=== PATIENT | female | born 1965 | race Two or more races ===

== ENCOUNTER → 2023-03-05 | Outpatient (REF) | payer OTHER ==
[~2023-03-05] MED LIST: /FEXO60TA OR; CALCIUM PO; CINNAMON PO; DIOV320T OR; FIBER PO; GLUC1000 OR; HYDR25TA6 OR; IRONTAB3 PO; JANUVIA PO; LEVO100T OR; MULTIVIT PO; POTA99TA OR; VIT D PO
== END ==
LOC: M SFHCDERM 08:29
PROVIDERS: ATTEND Nurse Practitioner Family
DX: R21 Rash and other nonspecific skin eruption (principal)
CPT/HCPCS: 87070; 87077; 87102; 87186; 87205; G0463

== ENCOUNTER → 2023-08-03 | Outpatient (REF) | payer OTHER | LOC: M SFHCPLAZ 16:10 | PROVIDERS: ATTEND Nurse Practitioner Family | DX: R21 Rash and other nonspecific skin eruption (principal) | CPT/HCPCS: 87070; 87077; 87186; G0463 ==

== ENCOUNTER → 2024-02-11 | Outpatient (CLI) | payer OTHER | LOC: M WHC 09:41 | PROVIDERS: ATTEND Advanced Practice Midwife | DX: Z12.31 Encounter for screening mammogram for malignant neoplasm of breast (principal) ==